=== PATIENT | male | born 1970 | race Caucasian/White ===

== ENCOUNTER 2024-04-14 16:59 | Emergency (ER) | payer BC, SELFPAY ==
[2024-04-14 17:05] VITALS: BP 181/115; BMI 40.4
[2024-04-14 19:00] VITALS: BP 167/95
--- NOTE | 2024-04-14 19:48 | ED.GENMED ---
History of Present Illness
General
Chief Complaint: Head Injury
Source: patient
Exam Limitations: none
Time Seen by Provider: 04/14/24 19:01
Nursing documentation reviewed up to this point in time: agreed with
Travel History
Have you had any contact with someone who has COVID-19?: No
Do you have any symptoms of coronavirus? Fever > 100 degrees, chills, cough, shortness of breath, sore throat, loss of taste or smell, muscle aches, or headache?: No
History of Present Illness
History of Present Illness:
53 y//o M with no pmh
here with headache and bruising after fall from standing
was cleaning his pool around 4 pm and slipped an dhit his right parietal region on the concrete side of the pool
no bleeding
felt dazed but was did not lose consciousness
no nauesa/vomiting
has had headache which got better here
a little fatigued but otherwise well
nothing taken for pain
no neck pain
soreness on his body but nothing specifically hurts;
Past History
Past History
ED Past Medical History: None
ED Past Surgical History: Other (Noncontributory)
Social History
Tobacco: Non-smoker
Alcohol: Occasional
Drug: None
Personal:
Living: with family
Employment: Employed
Family History
Family History: Other (Noncontributory)
Review of Systems
Review of Systems
Allergies reviewed?: Yes
All Other Systems: Not applicable
Phy Exam
Physical Exam
Physical Exam:
GENERAL: Alert , in no apparent distress
HEAD: R SIDED PARIETAL HEMATOMA TENDER, NO LACERATION
NECK: no midline tenderness, active ROM intact, no paraspinal muscle tenderness;
EYE: pupils equal and reactive, EOMs intact.
ENT: o/p clr, mmm. no hemotympanum
CARDIAC: Regular rate and rhythm, no edema
LUNGS: Clear breath sounds bilaterally, no acute respiratory distress, no wheezes/rales/rhonchi
ABDOMEN: Soft, without focal tenderness, no r/g, no cvat
NEUROLOGICAL: Alert and oriented, no focal neuro deficits, CN intact, 5/5 strength, sensation intact, FINGER TO NOSE NORMAL, AMBULATING REGULARLY
SKIN: Warm and dry, HEMAOTMA, NO BLEEDING
MUSCULOSKELETAL: No edema, well perfused.
PSYCH: Normal and appropriate interaction.
Course
Orders/Labs/Results
Orders:
Orders
04/14/24 17:09
CT Head W/o Iv Contrast Urgent
Comment:
Reason For Exam: head strike
Vital Signs
Initial and Last Documented VS:
Initial Vital Signs
Temp Pulse Resp BP Pulse Ox
98.2 F 84 16 181/115 99
04/14/24 17:05 04/14/24 17:05 04/14/24 17:05 04/14/24 17:05 04/14/24 17:05
Last Documented Vital Signs
Temp Pulse Resp BP Pulse Ox
98.2 F 84 16 167/95 99
04/14/24 17:05 04/14/24 19:00 04/14/24 17:05 04/14/24 19:00 04/14/24 19:00
MDM/Problems Addressed
Differential Diagnosis Includes:
CONCUSSION, MINOR HEAD INJURY
MDM/Problems Addressed:
53-year-old male presents after a head injury where he slipped and hit his head on the concrete at 4 PM today. Patient has a parietal right-sided hematoma and tenderness there, was dazed immediately after but never lost consciousness and has had
mild symptoms since. He is not anticoagulated. He is awake and alert and other than having a hematoma to his scalp has no findings on exam, neuro is intact. Head CT confirms that hematoma without any subdural or skull fracture or intracranial
hemorrhage. Patient's vital signs improved. Discharge home with mild concussion precautions
*Critical Care Note
Total Time (30-74mins, 75-104mins- exclusive of procedures): Not Applicable
ED Attending Note
-
Portions of this chart may have been created with voice recognition software.� Occasional wrong word or��sound alike� substitutions may have occurred due to the inherent limitations of voice recognition software.
Discharge Plan
Departure
Patient Disposition: Home (Routine Discharge)
Date of Disposition: 04/14/24
Time of Disposition: 19:57
Patient with high blood pressure during this ER visit?: Yes
Condition: Fair
Covid-19: Not Applicable
Discharge Problem:
Hematoma, Mild concussion
Instructions: Concussion, Adult (DC), BLOOD PRESSURE
Prescriptions:
No Action
No Current Medications
0
Referrals:
Augustine Mack, [Family Provider] - Follow up in 2-3 days
Stand Alone Forms: Return to Work
Activity Restrictions/Additional Instructions:
you may have a mild concussion. Your CAT scan showed a hematoma but no brain bleeding or skull fracture.
for this we recommend 24-48 hours of brain rest to help your brain heal and your headache improve.
also use tylenol every 6 hours, motrin every 8 hours as needed for pain.
for your neck, heat off and on as needed.
after 24-48 hours, you can return to regyular activity
if you are getting headaches, you may need to be sent home from work. if you are still having headaches all week, you need to see a specialist.
return to the er for: worsening pain, vomiting, confusion, weakness, numbness/tingling in arms or legs or any concerns.
Your blood pressure was elevated. Please have this rechecked by your family doctor
Interventions
Interventions:
*Risk Screen - Suicide Last Done: 04/14/24 17:05
*General Assessment Last Done: 04/14/24 19:03
*Neglect/Abuse Screening Last Done: 04/14/24 17:05
ED- Fall Risk Assessment Last Done: 04/14/24 17:05
*ED COVID-19 Vaccine History Last Done: 04/14/24 19:03
*Nursing Disposition Last Done: 04/14/24 20:12
ED- Neurological Assessment Last Done: 04/14/24 19:04
ED-Skin Assessment Last Done: 04/14/24 19:05
Discharge Date and Time
Discharge Date/Time: 04/14/24 20:12
Print Language: PAKIST[place]
== END 2024-04-14 20:12 | disposition home or self-care (01) ==
LOC: EMR 16:59
PROVIDERS: EMERGENCY PHYSICIAN Emergency Medicine; FAMILY PHYSICIAN Family Medicine
DX: S06.0X0A Concussion without loss of consciousness, initial encounter (principal); S00.03XA Contusion of scalp, initial encounter; W01.198A Fall on same level from slipping, tripping and stumbling with subsequent striking against other object, initial encounter; Y93.89 Activity, other specified; R03.0 Elevated blood-pressure reading, without diagnosis of hypertension; Z87.820 Personal history of traumatic brain injury; Z90.49 Acquired absence of other specified parts of digestive tract
CPT/HCPCS: 99284; 70450

== ENCOUNTER → 2024-10-24 06:20 | Outpatient (REF) | payer BC, SELFPAY ==
[2024-10-24 07:15] LABS: % Basophils 0.9 % (0-2); % Eosinophils 1.8 % (0-6); % Immature Granulocytes 0.5 % (0-0.5); % Lymphocytes 35.1 % (20.5-51.1); % Monocytes 14.6 % (1.7-9.3); % Neutrophils 47.1 % (42.2-75.2); Absolute Basophils 0.1 10^3/uL (0-0.2); Absolute Eosinophils 0.1 10^3/uL (0-0.7); Absolute Monocytes 0.8 10^3/uL (0.1-0.6); Absolute Neutrophils 2.6 10^3/uL (1.4-6.5); Hematocrit 48.2 % (39.0-52.0); Hemoglobin 17.8 g/dL (13.0-18.0); Mean Corp Hgb Conc. 36.9 g/dL (33.0-37.0); Mean Corpuscular Hgb 33.3 pg (27.0-31.0); Mean Corpuscular Volume 90.3 fL (80.0-94.0); Mean Platelet Volume 9.3 fL (7.4-10.4); Nucleated Red Blood Cells % 0 % (-); Platelet Count 205 10^3/uL (130-400); Red Blood Cell Count 5.34 10^6/uL (4.70-6.10); Red Cell Dist. Width 12.1 % (11.5-14.5); White Blood Cell Count 5.6 10^3/uL (4.8-10.8)
[2024-10-24 07:57] LABS: ALT (SGPT) 63 U/L (0-50); AST (SGOT) 39 U/L (17-59); Albumin 4.5 g/dl (3.5-5.0); Alkaline Phosphatase 42 U/L (38-126); Blood Urea Nitrogen 15 mg/dl (9-20); Calcium 9.3 mg/dl (8.4-10.2); Carbon Dioxide 24 mmol/L (22-30); Chloride 105 mmol/L (98-107); Glucose 101 mg/dl (70-99); HDL Cholesterol 80 mg/dl; LDL Cholesterol, Calculated 96 mg/dl; Potassium 4.5 mmol/L (3.5-5.1); Sodium 138 mmol/L (135-145); Total Bilirubin 1.4 mg/dl (0.2-1.3); Total Cholesterol 201 mg/dl (50-199); Triglyceride 127 mg/dl (10-149); Very Low Density Lipoprotein 25 mg/dl (0-30); eGFR > 60.00
[2024-10-24 08:14] LABS: PSA, Total - Screen 0.71 ng/ml (0.0-4.0); TSH 0.61 uIU/ml (0.47-4.68)
[2024-10-24 11:15] LABS: Glycohemoglobin (HgbA1c) 4.6 % (4.0-5.6)
== END ==
LOC: REG 06:20
PROVIDERS: ATTENDING PHYSICIAN Family Medicine
DX: E11.9 Type 2 diabetes mellitus without complications (principal); R35.0 Frequency of micturition; I10 Essential (primary) hypertension; E78.5 Hyperlipidemia, unspecified; R53.83 Other fatigue; E03.9 Hypothyroidism, unspecified
CPT/HCPCS: 36415; 80053; 80061; 83036; 84443; 85025; G0103

== ENCOUNTER → 2025-03-21 13:56 | Outpatient (REF) | payer BC, SELFPAY ==
[2025-03-23 23:37] LABS: Lipoprotein a (Lp a) <6 mg/dL (<=29)
== END ==
LOC: REG 13:56
PROVIDERS: ATTENDING PHYSICIAN Student in an Organized Health Care Education/Training Program; FAMILY PHYSICIAN Family Medicine
DX: Z00.8 Encounter for other general examination (principal)
CPT/HCPCS: 36415; 83695

== ENCOUNTER → 2025-03-28 08:40 | Outpatient (REF) | payer BC, SELFPAY | LOC: CLAB 08:40 | PROVIDERS: ATTENDING PHYSICIAN Physician Assistant Medical | DX: D48.5 Neoplasm of uncertain behavior of skin (principal) | CPT/HCPCS: 88305 ==

== ENCOUNTER → 2025-07-24 06:34 | Outpatient (REF) | payer BC, SELFPAY | LOC: MRI 3T 06:34 | PROVIDERS: ATTENDING PHYSICIAN Physician Assistant Surgical | DX: M25.811 Other specified joint disorders, right shoulder (principal) | CPT/HCPCS: 73221 ==

== ENCOUNTER 2025-10-08 17:45 | Outpatient (RCR) | payer BC, SELFPAY | END 2025-10-08 23:59 | disposition home or self-care (01) | LOC: RPT 17:45 | PROVIDERS: ATTENDING PHYSICIAN Physician Assistant Surgical; FAMILY PHYSICIAN Family Medicine | DX: M19.011 Primary osteoarthritis, right shoulder (principal); M25.511 Pain in right shoulder; Z73.6 Limitation of activities due to disability; R20.0 Anesthesia of skin; S46.211D Strain of muscle, fascia and tendon of other parts of biceps, right arm, subsequent encounter; S43.491D Other sprain of right shoulder joint, subsequent encounter; M62.81 Muscle weakness (generalized) | CPT/HCPCS: 97010; 97110; 97112; 97140; 97162; 97535 ==

== ENCOUNTER 2025-10-22 18:04 | Outpatient (RCR) | payer BC, SELFPAY | END 2025-10-22 23:59 | disposition home or self-care (01) | LOC: RPT 18:04 | PROVIDERS: ATTENDING PHYSICIAN Physician Assistant Surgical; FAMILY PHYSICIAN Family Medicine | DX: M19.011 Primary osteoarthritis, right shoulder (principal); M25.511 Pain in right shoulder; Z73.6 Limitation of activities due to disability; R20.0 Anesthesia of skin; S46.211D Strain of muscle, fascia and tendon of other parts of biceps, right arm, subsequent encounter; S43.491D Other sprain of right shoulder joint, subsequent encounter; M62.81 Muscle weakness (generalized) | CPT/HCPCS: 97110; 97112; 97140 ==